=== PATIENT | male | born 1965 ===

== ENCOUNTER 2018-12-30 10:06 | Emergency (ER) | payer OTHER ==
[2018-12-30 10:08] VITALS: BMI 32.3
[2018-12-30] MEDS ORDERED: Sodium Chloride 0.9% 1,000 ML IV STA (11:01)
--- NOTE | 2018-12-30 11:07 | ED PDOC ---
HPI: General Adult Time Seen by Provider: 12/30/18 10:33 Chief Complaint (Nursing): GI Problem Chief Complaint (Provider): Vomiting, nausea History Per: Patient History/Exam Limitations: no limitations Onset/Duration Of Symptoms: Days Current Symptoms Are (Timing): Still Present Additional Complaint(s): 53yo male, with history of diabetes (on metformin), comes to ER reporting nasuea, vomiting, and epigastric abdominal discomfort x 1 week. He also reports numbness and tingling to his hands and feet for 1 week. Patient was evaluated for these symptoms by his PMD Dr. Sanchez, had labs, and was told all was normal. He additionally reports throat discomfort x 2 days. Otherwise, no chest pain, shortness of breath, diarrhea. No additional complaints. PMD: Dr. Sanchez Past Medical History Reviewed: Historical Data, Nursing Documentation, Vital Signs Vital Signs: Last Vital Signs Temp 99.2 F 12/30/18 10:08 Pulse 107 H 12/30/18 10:08 Resp 17 12/30/18 10:08 BP 124/70 12/30/18 10:08 Pulse Ox 98 12/30/18 10:08 - Medical History PMH: Diabetes - Surgical History Other surgeries: left leg surgery - Family History Family History: States: No Known Family Hx - Home Medications Home Medications: Ambulatory Orders Medication Instructions Recorded Famotidine [Pepcid] 20 mg PO DAILY #14 tab 12/30/18 Omeprazole 20 mg PO DAILY #30 capsule. 12/30/18 Oseltamivir Cap [Tamiflu] 75 mg PO BID #10 cap 12/30/18 - Allergies Allergies/Adverse Reactions: Allergies Allergy/AdvReac Type Severity Reaction Status Date / Time No Known Allergies Allergy Verified 12/30/18 10:32 Review of Systems ROS Statement: Except As Marked, All Systems Reviewed And Found Negative Constitutional: Positive for: Chills Cardiovascular: Negative for: Chest Pain Respiratory: Negative for: Shortness of Breath Gastrointestinal: Positive for: Nausea, Vomiting, Abdominal Pain (epigastric). Negative for: Diarrhea, Constipation Genitourinary Male: Negative for: Dysuria, Frequency, Hematuria Neurological: Positive for: Numbness (and tingling to hands and feet). Negative for: Headache, Dizziness Physical Exam - Reviewed Nursing Documentation Reviewed: Yes Vital Signs Reviewed: Yes - Physical Exam Appears: Positive for: Well, Non-toxic, No Acute Distress Head Exam: Positive for: ATRAUMATIC, NORMAL INSPECTION, NORMOCEPHALIC Skin: Positive for: Normal Color, Warm, DRY Eye Exam: Positive for: EOMI, Normal appearance, PERRL ENT: Positive for: Normal ENT Inspection, Other (moist mucosa) Neck: Positive for: Normal, Painless ROM, Supple Cardiovascular/Chest: Positive for: Regular Rate, Rhythm. Negative for: Murmur, Tachycardia Respiratory: Positive for: Normal Breath Sounds. Negative for: Rales, Rhonchi, Respiratory Distress Pulses-Radial (L): 2+ Pulses-Radial (R): 2+ Gastrointestinal/Abdominal: Positive for: Normal Exam, Soft. Negative for: Tenderness, Guarding, Rebound Back: Positive for: Normal Inspection. Negative for: L CVA Tenderness, R CVA T enderness Extremity: Positive for: Normal ROM, Other (normal distal sensations). Negative for: Pedal Edema, Deformity Neurologic/Psych: Positive for: Alert, Oriented. Negative for: Motor/Sensory Deficits - Laboratory Results Result Diagrams: 12/30/18 11:31 12/30/18 11:31 - ECG ECG: Positive for: Interpreted By Me, Viewed By Me ECG Rhythm: Positive for: Normal QRS, Normal ST Segment, Sinus Rhythm. Negative for: ST/T Changes Rate: 97 O2 Sat by Pulse Oximetry: 98 (RA) Pulse Ox Interpretation: Normal - Progress Re-evaluation Time: 13:57 Condition: Re-examined, Improved Medical Decision Making Medical Decision Making: Impression: Nausea, epigastric pain, throat pain Differential: Uncontrolled diabetes, dehydration, GERD, gastritis, gastroparesis, less likely pancreatitis Plan: -- Labs -- EKG -- Accuhceck -- IV fluids -- Pepcid 20mg IV -- US Galbladder 1144 Accucheck normal UDip reviewed, no acute findings. 1340 US Galbladder GALLBLADDER: Unremarkable. No gallstones. COMMON BILE DUCT: Measures 3 mm. No stones. No dilatation. PANCREAS: Unremarkable as visualized. No mass. No ductal dilatation. RIGHT KIDNEY: Measures 11.1 cm in length. Normal echogenicity. No calculus, mass, or hydronephrosis. AORTA: No aneurysmal dilatation. IVC: Unremarkable. OTHER FINDINGS: None . IMPRESSION: Unremarkable examination. 1520 Patient negative for strep. Rapid flu positive. Patient to be discharged home, given prescription for Tamiflu Instructed to follow up with PMD/clinic in 2-3 days Scribe Attestation: Documented by Luzma Pemberton acting as a scribe for Lulu Jj MD Provider Attestation: All medical record entries made by the Scribe were at my direction and person ally dictated by me. I have reviewed the chart and agree that the record accurately reflects my personal performance of the history, physical exam, medical decision making, and the department course for this patient. I have also personally directed, reviewed, and agree with the discharge instructions and disposition. Disposition - Clinical Impression Clinical Impression: Nausea & vomiting, Iron deficiency, Influenza A - Patient ED Disposition Is Patient to be Admitted: No Doctor Will See Patient In The: Office Counseled Patient/Family Regarding: Studies Performed, Diagnosis, Need For Followup - Disposition Referrals: Juan Sanchez MD [Staff Provider] - Katlyn White MD [Medical Doctor] - Disposition: Routine/Home Disposition Time: 13:58 Condition: GOOD Additional Instructions: LAQUITA HAQ, thank you for letting us take care of you today. Your provider was Lulu Jj MD and you were treated for NAUSEA. The emergency medical care you received today was directed at your acute symptoms. If you were prescribed any medication, please fill it and take as directed. It may take several days for your symptoms to resolve. Return to the Emergency Department if your symptoms worsen, do not improve, or if you have any other problems. Please contact your doctor or call one of the physicians/clinics you have been referred to that are listed on the Patient Visit Information form that is included in your discharge packet. Bring any paperwork you were given at [facility] with you along with any medications you are taking to your follow up visit. Our treatment cannot replace ongoing medical care by a primary care provider outside of the emergency department. Thank you for allowing the [facility] team to be part of your care today. If you had an X-Ray or CT scan: A Radiologist will review the ED reading if any change in treatment is needed we will contact you. If you had a blood, urine, or wound culture: It will take several days for the results, if any change in treatment is needed we will contact you. If you had an STI test: It will take 48 hours for the results. Please call after 1 week if you have not heard back. Prescriptions: Famotidine [Pepcid] 20 mg PO DAILY #14 tab Omeprazole 20 mg PO DAILY #30 capsule. Oseltamivir Cap [Tamiflu] 75 mg PO BID #10 cap Instructions: Flu, Adult (DC), Acid Reflux (Gastroesophageal Reflux Disease), Adult (DC), Anemia Caused by Low Iron, Adult (DC) Forms: True Style (Congolese) Print Language: [id number]
[2018-12-30 11:54] LABS: BASO % 0.5 % (0.0-2.0); EOS # 0.1 K/uL (0.0-0.7); EOS % 1.1 % (0.0-4.0); HEMOGLOBIN 11.9 g/dL (12.0-18.0); LYMPH # 0.3 K/uL (1.0-4.3); LYMPH % 5.3 % (20.0-40.0); MEAN CELL VOLUME 76.8 fl (80.0-94.0); MEAN CORPUSCULAR HEMOGLOBIN 24.7 pg (27.0-31.0); MEAN CORPUSCULAR HGB CONC 32.1 g/dL (33.0-37.0); MEAN PLATELET VOLUME 7.8 fl (7.2-11.7); MONO # 0.4 K/uL (0.0-0.8); NEUT # 4.1 K/uL (1.8-7.0); NEUT % 85.1 % (50.0-75.0); NRBC % 0.1 % (0.0-0.0); PLATELET COUNT 200 K/uL (130-400); RBC 4.82 Mil/uL (4.40-5.90); RED CELL DISTRIBUTION WIDTH 15.6 % (11.5-14.5); WHITE BLOOD COUNT 4.8 K/uL (4.8-10.8)
[2018-12-30 12:10] LABS: ALB/GLOB RATIO 1.1 (1.0-2.1); ALBUMIN 3.6 g/dL (3.5-5.0); ALT/SGPT 24 U/L (21-72); AST/SGOT 28 U/L (17-59); BLOOD UREA NITROGEN 13 mg/dl (9-20); CALCIUM 9.1 mg/dL (8.4-10.2); GFR NON-AFRICAN AMERICAN > 60; LIPASE 172 U/L (23-300)
[2018-12-30 12:27] LABS: BANDS 2 % (0-2); EOSINOPHIL 1 % (0-7); HYPOCHROMIC SLIGHT; LYMPHOCYTE 4 % (20-50); MICROCYTOSIS SLIGHT; MONOCYTE 12 % (0-10); NEUTROPHIL 81 % (42-75); PLATELET ESTIMATE NORMAL (NORMAL); TOTAL CELLS COUNTED 100
[2018-12-30 12:28] LABS: LARGE PLATELETS PRESENT
--- NOTE | 2018-12-30 13:32 | US ---
Date of service: 12/30/2018 HISTORY: nasea epigastric pain COMPARISON: None. TECHNIQUE: Sonographic evaluation of the right upper quadrant of the abdomen. FINDINGS: LIVER: Measures 17.3 cm in length. Normal echogenicity of the liver parenchyma. No mass. No intrahepatic bile duct dilatation. GALLBLADDER: Unremarkable. No gallstones. COMMON BILE DUCT: Measures 3 mm. No stones. No dilatation. PANCREAS: Unremarkable as visualized. No mass. No ductal dilatation. RIGHT KIDNEY: Measures 11.1 cm in length. Normal echogenicity. No calculus, mass, or hydronephrosis. AORTA: No aneurysmal dilatation. IVC: Unremarkable. OTHER FINDINGS: None . IMPRESSION: Unremarkable examination.
[2018-12-30 14:51] VITALS: BP 116/72; RESP 16; TEMP 100.5
[2018-12-30 15:41] VITALS: PULSE 90; O2SAT 100
--- NOTE | 2018-12-30 23:47 | CARD ---
APPROVED REPORT Date of service: 12/30/2018 EKG Measurement Heart [id number] <Conclusion> Normal sinus rhythm Questionable lead placement- anterior precordial leads Probably normall ECG
== END 2018-12-30 15:39 | disposition home or self-care (01) ==
LOC: H.ER 10:06
DX: R11.2 Nausea with vomiting, unspecified (principal); D50.9 Iron deficiency anemia, unspecified; J09.X2 Influenza due to identified novel influenza A virus with other respiratory manifestations; E11.9 Type 2 diabetes mellitus without complications; Z79.899 Other long term (current) drug therapy
CPT/HCPCS: 76705; 80053; 82948; 83690; 84484; 85025; 87070; 87430; 87804; 93005; 96361; 96374; 99285; J7030